=== PATIENT | male | born 1985 | race Caucasian/White ===

== ENCOUNTER → 2016-11-22 | Outpatient (CLI) | payer MEDICAID, OTHER | LOC: M LAB 14:27 | PROVIDERS: ATTEND Hospitalist | DX: Z11.3 Encounter for screening for infections with a predominantly sexual mode of transmission (principal); Z11.4 Encounter for screening for human immunodeficiency virus [HIV] ==

== ENCOUNTER 2016-12-13 12:11 | Emergency (ER) | payer MEDICAID, OTHER ==
[~2016-12-13] VITALS: Ht 177.8 cm; Wt 84.5 kg
[2016-12-13] MEDS ORDERED: BUPR150T3 (12:26)
[2016-12-13] MEDS ORDERED: OMEP40CA2 (12:26)
[2016-12-13] MEDS ORDERED: SERT-138 (12:26)
[2016-12-13 13:48] VITALS: BP 135/88
--- NOTE | 2016-12-13 14:09 | REP ---
RIGHT FOOT, FIVE VIEWS: There is no evidence of an acute fracture, dislocation or intrinsic bone disease. IMPRESSION: No fracture or dislocation. Signed by Alonzo Blank MD 12/13/2016 04:44 P
== END 2016-12-13 13:59 | disposition home or self-care (01) ==
LOC: M ED 12:11
DX: S93.601A Unspecified sprain of right foot, initial encounter (principal); X50.9XXA Other and unspecified overexertion or strenuous movements or postures, initial encounter; Y92.410 Unspecified street and highway as the place of occurrence of the external cause; Y93.89 Activity, other specified; Y99.8 Other external cause status; F41.9 Anxiety disorder, unspecified; F32.9 Major depressive disorder, single episode, unspecified; Z79.899 Other long term (current) drug therapy

== ENCOUNTER 2017-07-23 00:11 | Emergency (ER) | payer OTHER ==
[2017-07-23 02:25] LABS: APPEARANCE, URINE CLEAR (CLEAR); BACTERIA, URINE AUTO NEGATIVE (NEGATIVE); BILIRUBIN, URINE AUTO NEGATIVE (NEGATIVE); BLOOD, URINE BLOOD NEGATIVE (NEGATIVE); COLOR, URINE YELLOW (YELLOW); GLUCOSE, URINE (UA) AUTO NEGATIVE (NEGATIVE); KETONE, URINE AUTO NEGATIVE (NEGATIVE); LEUKOCYTE ESTERASE, URINE AUTO NEGATIVE (NEGATIVE); NITRITE, URINE AUTO NEGATIVE (NEGATIVE); PROTEIN, URINE AUTO NEGATIVE (NEGATIVE); RBC, URINE AUTO 0 /HPF (0-3); SPECIFIC GRAVITY URINE AUTO 1.003 (1.002-1.035); SQUAMOUS EPITHELIAL CELL UR AU 0 /HPF (0-6); UROBILINOGEN, URINE AUTO 0.2 mg/dL (0.0-2.0); WBC, URINE AUTO 0 /HPF (0-3)
[2017-07-23 03:53] LABS: CHLAMYDIA DNA AMPLIFICATION NEGATIVE (NEGATIVE); GC DNA AMPLIFICATION NEGATIVE (NEGATIVE)
== END 2017-07-23 04:21 | disposition home or self-care (01) ==
LOC: M ED 00:11
DX: N34.2 Other urethritis (principal); F41.9 Anxiety disorder, unspecified; Z79.899 Other long term (current) drug therapy; F17.210 Nicotine dependence, cigarettes, uncomplicated
CPT/HCPCS: 81001

== ENCOUNTER → 2017-07-28 | Outpatient (REF) | payer OTHER ==
[2017-07-28 14:18] LABS: APPEARANCE, URINE CLEAR (CLEAR); BACTERIA, URINE AUTO NEGATIVE (NEGATIVE); BILIRUBIN, URINE AUTO NEGATIVE (NEGATIVE); BLOOD, URINE BLOOD NEGATIVE (NEGATIVE); COLOR, URINE YELLOW (YELLOW); GLUCOSE, URINE (UA) AUTO NEGATIVE (NEGATIVE); KETONE, URINE AUTO NEGATIVE (NEGATIVE); LEUKOCYTE ESTERASE, URINE AUTO NEGATIVE (NEGATIVE); MUCUS, URINE SMALL (NEGATIVE); NITRITE, URINE AUTO NEGATIVE (NEGATIVE); PROTEIN, URINE AUTO NEGATIVE (NEGATIVE); RBC, URINE AUTO 2 /HPF (0-3); SPECIFIC GRAVITY URINE AUTO 1.013 (1.002-1.035); SQUAMOUS EPITHELIAL CELL UR AU 1 /HPF (0-6); UROBILINOGEN, URINE AUTO 0.2 mg/dL (0.0-2.0); WBC, URINE AUTO 4 /HPF (0-3)
== END ==
LOC: M SMT 13:26
DX: N48.89 Other specified disorders of penis (principal)
CPT/HCPCS: 81001

== ENCOUNTER → 2017-09-08 | Outpatient (REF) | payer OTHER ==
[2017-09-08 16:42] LABS: THYROID STIMULATING HORMONE 0.943 uIU/ML (0.358-3.740)
== END ==
LOC: M SFHCPLAZ 14:27
DX: F41.8 Other specified anxiety disorders (principal)

== ENCOUNTER 2018-02-15 12:10 | Inpatient (IN) | payer OTHER ==
[2018-02-15 12:58] LABS: HEMATOCRIT 46.7 % (42.0-52.0); HEMOGLOBIN 16.1 g/dl (13.5-17.5); MEAN CORPUSCULAR HEMOGLOBIN 32.1 pg (27.0-33.0); MEAN CORPUSCULAR HGB CONC 34.5 g/dl (32.0-36.5); PLATELET COUNT, AUTOMATED 322 10^3/uL (150-450); RED BLOOD COUNT 5.02 10^6/uL (4.30-6.10); RED CELL DISTRIBUTION WIDTH 12.6 % (11.5-14.5); WHITE BLOOD COUNT 11.8 10^3/uL (4.0-10.0)
[2018-02-15 13:34] LABS: ACETAMINOPHEN LEVEL < 2.0 UG/ML (10.0-30.0); ALBUMIN 4.3 GM/DL (3.2-5.2); ALKALINE PHOSPHATASE 64 U/L (45-117); ALT/SGPT 39 U/L (12-78); AST/SGOT 20 U/L (7-37); BILIRUBIN,DIRECT 0.3 MG/DL (0.0-0.2); BILIRUBIN,TOTAL 1.3 MG/DL (0.2-1.0); ETHYL ALCOHOL (ETHANOL) 0.003 % (0.000-0.010); SALICYLATE LEVEL < 1.7 MG/DL (5.0-30.0); THYROID STIMULATING HORMONE 0.867 uIU/ML (0.358-3.740); TOTAL PROTEIN 7.6 GM/DL (6.4-8.2)
[2018-02-15 14:15] LABS: ANION GAP 14 MEQ/L (8-16); BLOOD UREA NITROGEN 13 MG/DL (7-18); CALCIUM LEVEL 9.6 MG/DL (8.5-10.1); CARBON DIOXIDE LEVEL 21 MEQ/L (21-32); CHLORIDE LEVEL 107 MEQ/L (98-107); GLOMERULAR FILTRATION RATE > 60.0 (>60); GLUCOSE, FASTING 102 MG/DL (70-100); POTASSIUM SERUM 4.4 MEQ/L (3.5-5.1); SODIUM LEVEL 142 MEQ/L (136-145)
[2018-02-15 15:26] LABS: AMPHETAMINES LEVEL URINE NEGATIVE (NEGATIVE); BARBITURATES URINE NEGATIVE (NEGATIVE); BENZODIAZEPINES URINE NEGATIVE (NEGATIVE); CANNABINOIDS URINE POSITIVE (NEGATIVE); COCAINE METABOLITE URINE NEGATIVE (NEGATIVE); METHADONE URINE NEGATIVE (NEGATIVE); OPIATES URINE NEGATIVE (NEGATIVE); PHENCYCLIDINE URINE NEGATIVE (NEGATIVE)
[2018-02-15] MEDS ORDERED: MOM 30ML SUSPENSION UDC PO (17:45)
[2018-02-15] MEDS ORDERED: MAALOX 30 ML SUSP *UDC PO (17:45)
[2018-02-15] MEDS ORDERED: OLANZapine ORAL DISINTEGRATING TAB 5MG PO (17:45)
[2018-02-15] MEDS ORDERED: traZODone 50 MG TAB PO (17:45)
[2018-02-15] MEDS ORDERED: LORazepam 1 MG TAB PO (17:45)
[2018-02-15] MEDS: NICOTINE POLACRILEX 2 MG GUM PO (18:15)
[2018-02-15] MEDS ORDERED: NICOTINE POLACRILEX 2 MG GUM PO (22:15)
[2018-02-16] MEDS: FLUoxetine 20 MG CAP PO (09:51)
[2018-02-16] MEDS: INFLUENZA QUADRIVALENT PF VACCINE 0.5ML SYRINGE (90686) IM (09:52)
[2018-02-16] MEDS: NICOTINE 21MG/24HR 1 EA TRANSDERMAL TD (16:09)
[2018-02-17 07:05] LABS: HEMATOCRIT 46.5 % (42.0-52.0); HEMOGLOBIN 15.4 g/dl (13.5-17.5); MEAN CORPUSCULAR HEMOGLOBIN 31.6 pg (27.0-33.0); MEAN CORPUSCULAR HGB CONC 33.1 g/dl (32.0-36.5); MEAN CORPUSCULAR VOLUME 95.3 fl (80.0-96.0); PLATELET COUNT, AUTOMATED 308 10^3/uL (150-450); RED BLOOD COUNT 4.88 10^6/uL (4.30-6.10); RED CELL DISTRIBUTION WIDTH 12.4 % (11.5-14.5); WHITE BLOOD COUNT 8.6 10^3/uL (4.0-10.0)
[2018-02-17] MEDS: buPROPion **XL** TABLET 150MG (WELLBUTRIN XL) PO (08:53)
[2018-02-17] MEDS: FLUoxetine 20 MG CAP PO (08:53)
[2018-02-17] MEDS: NICOTINE 21MG/24HR 1 EA TRANSDERMAL TD (08:54)
[2018-02-17] MEDS: IBUPROFEN 600 MG TAB PO (08:57)
[2018-02-18] MEDS: OMEPRAZOLE 20 MG CAP PO (09:02)
[2018-02-18] MEDS: FLUoxetine 20 MG CAP PO (09:02)
[2018-02-18] MEDS: buPROPion **XL** TABLET 150MG (WELLBUTRIN XL) PO (09:03)
[2018-02-18] MEDS: NICOTINE 21MG/24HR 1 EA TRANSDERMAL TD (09:04)
[2018-02-18] MEDS: ACETAMINOPHEN TAB 650MG DOSE (2X325MG) PO (09:07)
[2018-02-18] MEDS ORDERED: hydrOXYzine 25 MG TAB PO (09:15)
[2018-02-19] MEDS: NICOTINE 21MG/24HR 1 EA TRANSDERMAL TD (09:24)
[2018-02-19] MEDS: OMEPRAZOLE 20 MG CAP PO (09:24)
[2018-02-19] MEDS: buPROPion **XL** TABLET 150MG (WELLBUTRIN XL) PO (09:24)
[2018-02-19] MEDS: FLUoxetine 20 MG CAP PO (09:24)
[2018-02-20] MEDS: FLUoxetine 20 MG CAP PO (08:05)
[2018-02-20] MEDS: OMEPRAZOLE 20 MG CAP PO (08:05)
[2018-02-20] MEDS: buPROPion **XL** TABLET 150MG (WELLBUTRIN XL) PO (08:05)
[2018-02-20] MEDS: NICOTINE 21MG/24HR 1 EA TRANSDERMAL TD (08:06)
[2018-02-21] MEDS: buPROPion **XL** TABLET 150MG (WELLBUTRIN XL) PO (08:10)
[2018-02-21] MEDS: FLUoxetine 20 MG CAP PO (08:10)
[2018-02-21] MEDS: NICOTINE 21MG/24HR 1 EA TRANSDERMAL TD (08:10)
[2018-02-21] MEDS: OMEPRAZOLE 20 MG CAP PO (08:10)
== END 2018-02-21 11:55 | disposition home or self-care (01) | DRG 751 ==
LOC: M PSY 02-17 06:59 → M ED 12:10 → M ED INP 17:43 → M PSY 20:45
DX: F33.2 Major depressive disorder, recurrent severe without psychotic features (principal); F43.10 Post-traumatic stress disorder, unspecified; F41.1 Generalized anxiety disorder; Z81.8 Family history of other mental and behavioral disorders; Z79.899 Other long term (current) drug therapy

== ENCOUNTER 2018-03-16 21:46 | Emergency (ER) | payer OTHER ==
[2018-03-16 22:00] LABS: HEMATOCRIT 50.3 % (42.0-52.0); HEMOGLOBIN 17.1 g/dl (13.5-17.5); MEAN CORPUSCULAR HEMOGLOBIN 31.8 pg (27.0-33.0); MEAN CORPUSCULAR VOLUME 93.5 fl (80.0-96.0); PLATELET COUNT, AUTOMATED 321 10^3/uL (150-450); RED BLOOD COUNT 5.38 10^6/uL (4.30-6.10); RED CELL DISTRIBUTION WIDTH 12.3 % (11.5-14.5); WHITE BLOOD COUNT 7.2 10^3/uL (4.0-10.0)
[2018-03-16] MEDS: chlorproMAZINE 25 MG TAB (Q0161) PO (22:00)
[2018-03-16 22:26] LABS: ACETAMINOPHEN LEVEL < 2.0 UG/ML (10.0-30.0); ALBUMIN 4.3 GM/DL (3.2-5.2); ALBUMIN/GLOBULIN RATIO 1.16 (1.00-1.93); ALKALINE PHOSPHATASE 86 U/L (45-117); ALT/SGPT 43 U/L (12-78); ANION GAP 8 MEQ/L (8-16); AST/SGOT 34 U/L (7-37); BILIRUBIN,DIRECT 0.2 MG/DL (0.0-0.2); BILIRUBIN,TOTAL 0.7 MG/DL (0.2-1.0); BLOOD UREA NITROGEN 10 MG/DL (7-18); CALCIUM LEVEL 8.6 MG/DL (8.5-10.1); CARBON DIOXIDE LEVEL 28 MEQ/L (21-32); CHLORIDE LEVEL 107 MEQ/L (98-107); CREATININE FOR GFR 0.89 MG/DL (0.70-1.30); ETHYL ALCOHOL (ETHANOL) 0.145 % (0.000-0.010); GLOMERULAR FILTRATION RATE > 60.0 (>60); GLUCOSE, FASTING 84 MG/DL (70-100); POTASSIUM SERUM 4.2 MEQ/L (3.5-5.1); SALICYLATE LEVEL 2.1 MG/DL (5.0-30.0); SODIUM LEVEL 143 MEQ/L (136-145)
[2018-03-16 22:31] LABS: AMPHETAMINES LEVEL URINE NEGATIVE (NEGATIVE); BARBITURATES URINE NEGATIVE (NEGATIVE); BENZODIAZEPINES URINE NEGATIVE (NEGATIVE); CANNABINOIDS URINE POSITIVE (NEGATIVE); COCAINE METABOLITE URINE NEGATIVE (NEGATIVE); METHADONE URINE NEGATIVE (NEGATIVE); OPIATES URINE NEGATIVE (NEGATIVE); PHENCYCLIDINE URINE NEGATIVE (NEGATIVE)
== END 2018-03-17 05:02 | disposition home or self-care (01) ==
LOC: M ED 03-17 05:02
DX: R45.850 Homicidal ideations (principal); Z72.811 Adult antisocial behavior; F10.929 Alcohol use, unspecified with intoxication, unspecified; F12.10 Cannabis abuse, uncomplicated; Z79.899 Other long term (current) drug therapy
CPT/HCPCS: Q0161

== ENCOUNTER 2018-03-21 19:01 | Inpatient (IN) | payer OTHER ==
[2018-03-21 19:47] LABS: HEMATOCRIT 42.5 % (42.0-52.0); HEMOGLOBIN 14.9 g/dl (13.5-17.5); MEAN CORPUSCULAR HEMOGLOBIN 31.8 pg (27.0-33.0); MEAN CORPUSCULAR HGB CONC 35.1 g/dl (32.0-36.5); MEAN CORPUSCULAR VOLUME 90.8 fl (80.0-96.0); PLATELET COUNT, AUTOMATED 324 10^3/uL (150-450); RED BLOOD COUNT 4.68 10^6/uL (4.30-6.10); RED CELL DISTRIBUTION WIDTH 11.9 % (11.5-14.5); WHITE BLOOD COUNT 8.9 10^3/uL (4.0-10.0)
[2018-03-21 20:26] LABS: AMPHETAMINES LEVEL URINE NEGATIVE (NEGATIVE); BARBITURATES URINE NEGATIVE (NEGATIVE); BENZODIAZEPINES URINE NEGATIVE (NEGATIVE); CANNABINOIDS URINE POSITIVE (NEGATIVE)
[2018-03-21 20:27] LABS: COCAINE METABOLITE URINE NEGATIVE (NEGATIVE); METHADONE URINE NEGATIVE (NEGATIVE); OPIATES URINE NEGATIVE (NEGATIVE); PHENCYCLIDINE URINE NEGATIVE (NEGATIVE)
[2018-03-21 20:42] LABS: ALBUMIN/GLOBULIN RATIO 1.48 (1.00-1.93); ALKALINE PHOSPHATASE 69 U/L (45-117); ALT/SGPT 37 U/L (12-78); AST/SGOT 17 U/L (7-37); BLOOD UREA NITROGEN 11 MG/DL (7-18); CALCIUM LEVEL 9.1 MG/DL (8.5-10.1); CARBON DIOXIDE LEVEL 27 MEQ/L (21-32); CREATININE FOR GFR 0.82 MG/DL (0.70-1.30); GLOMERULAR FILTRATION RATE > 60.0 (>60); SODIUM LEVEL 141 MEQ/L (136-145); TOTAL PROTEIN 6.7 GM/DL (6.4-8.2)
[2018-03-21 21:00] LABS: ANION GAP 6 MEQ/L (8-16); BILIRUBIN,DIRECT 0.3 MG/DL (0.0-0.2); BILIRUBIN,TOTAL 1.3 MG/DL (0.2-1.0); CHLORIDE LEVEL 108 MEQ/L (98-107); ETHYL ALCOHOL (ETHANOL) < 0.003 % (0.000-0.010); GLUCOSE, FASTING 129 MG/DL (70-100); SALICYLATE LEVEL < 1.7 MG/DL (5.0-30.0)
[2018-03-21] MEDS: THIAMINE 100 MG TAB PO (21:00)
[2018-03-21 21:01] LABS: ACETAMINOPHEN LEVEL < 2.0 UG/ML (10.0-30.0)
[2018-03-21] MEDS ORDERED: MOM 30ML SUSPENSION UDC PO (23:00)
[2018-03-21] MEDS ORDERED: LORazepam 2 MG TAB PO (23:00)
[2018-03-21] MEDS ORDERED: ACETAMINOPHEN TAB 650MG DOSE (2X325MG) PO (23:00)
[2018-03-21] MEDS ORDERED: MAALOX 30 ML SUSP *UDC PO (23:00)
[2018-03-21 23:07] LABS: GOLD SPEC TUBE RECIEVED
[2018-03-22] MEDS: MULTIVITAMINS/MINERALS THERAP 1 TAB PO (08:16)
[2018-03-22] MEDS: THIAMINE 100 MG TAB PO ×2 (08:16→21:27)
[2018-03-22] MEDS: FOLIC ACID 1 MG TAB PO (08:16)
[2018-03-22] MEDS ORDERED: PANTOPRAZOLE 40MG TAB (PROTONIX) PO (11:00)
[2018-03-22] MEDS ORDERED: hydrOXYzine 50 MG TAB PO (13:45)
[2018-03-22] MEDS: FLUoxetine 20 MG CAP PO (14:13)
[2018-03-22] MEDS: buPROPion **XL** TABLET 150MG (WELLBUTRIN XL) PO (14:13)
[2018-03-22] MEDS: GABAPENTIN 100 MG CAP PO ×2 (15:03→21:27)
[2018-03-22] MEDS: traZODone 50 MG TAB PO (21:27)
[2018-03-23] MEDS: MULTIVITAMINS/MINERALS THERAP 1 TAB PO (08:51)
[2018-03-23] MEDS: GABAPENTIN 100 MG CAP PO ×3 (08:51→21:03)
[2018-03-23] MEDS: FOLIC ACID 1 MG TAB PO (08:51)
[2018-03-23] MEDS: buPROPion **XL** TABLET 150MG (WELLBUTRIN XL) PO (08:51)
[2018-03-23] MEDS: FLUoxetine 20 MG CAP PO (08:51)
[2018-03-23] MEDS: THIAMINE 100 MG TAB PO ×2 (08:51→21:03)
[2018-03-23] MEDS: traZODone 50 MG TAB PO (21:03)
[2018-03-24] MEDS: buPROPion **XL** TABLET 150MG (WELLBUTRIN XL) PO (08:29)
[2018-03-24] MEDS: FLUoxetine 20 MG CAP PO (08:30)
[2018-03-24] MEDS: MULTIVITAMINS/MINERALS THERAP 1 TAB PO (08:30)
[2018-03-24] MEDS: GABAPENTIN 100 MG CAP PO ×3 (08:30→23:34)
[2018-03-24] MEDS: FOLIC ACID 1 MG TAB PO (08:30)
[2018-03-24] MEDS: THIAMINE 100 MG TAB PO (08:30)
[2018-03-24] MEDS: traZODone 50 MG TAB PO (23:34)
[2018-03-25] MEDS: MULTIVITAMINS/MINERALS THERAP 1 TAB PO (08:06)
[2018-03-25] MEDS: FOLIC ACID 1 MG TAB PO (08:06)
[2018-03-25] MEDS: FLUoxetine 20 MG CAP PO (08:07)
[2018-03-25] MEDS: buPROPion **XL** TABLET 150MG (WELLBUTRIN XL) PO (08:07)
[2018-03-25] MEDS: GABAPENTIN 100 MG CAP PO ×3 (08:07→21:17)
[2018-03-25] MEDS: traZODone 50 MG TAB PO (21:17)
[2018-03-26] MEDS: FLUoxetine 20 MG CAP PO (08:37)
[2018-03-26] MEDS: buPROPion **XL** TABLET 150MG (WELLBUTRIN XL) PO (08:37)
[2018-03-26] MEDS: FOLIC ACID 1 MG TAB PO (08:37)
[2018-03-26] MEDS: MULTIVITAMINS/MINERALS THERAP 1 TAB PO (08:37)
[2018-03-26] MEDS: GABAPENTIN 100 MG CAP PO ×3 (08:37→22:20)
[2018-03-26] MEDS: traZODone 50 MG TAB PO (22:20)
[2018-03-27] MEDS: MULTIVITAMINS/MINERALS THERAP 1 TAB PO (08:16)
[2018-03-27] MEDS: FOLIC ACID 1 MG TAB PO (08:16)
[2018-03-27] MEDS: GABAPENTIN 100 MG CAP PO ×3 (08:16→21:17)
[2018-03-27] MEDS: buPROPion **XL** TABLET 150MG (WELLBUTRIN XL) PO (08:16)
[2018-03-27] MEDS: FLUoxetine 20 MG CAP PO (08:16)
[2018-03-27] MEDS: traZODone 50 MG TAB PO (21:17)
[2018-03-28] MEDS: FLUoxetine 20 MG CAP PO (08:35)
[2018-03-28] MEDS: buPROPion **XL** TABLET 150MG (WELLBUTRIN XL) PO (08:35)
[2018-03-28] MEDS: GABAPENTIN 100 MG CAP PO (08:35)
[2018-03-28] MEDS: MULTIVITAMINS/MINERALS THERAP 1 TAB PO (08:35)
[2018-03-28] MEDS: FOLIC ACID 1 MG TAB PO (08:35)
== END 2018-03-28 12:06 | disposition home or self-care (01) | DRG 755 ==
LOC: M PSY 03-22 01:42 → M ED 19:01 → M ED INP 22:51
PROVIDERS: Psychiatry & Neurology Psychiatry
DX: F43.10 Post-traumatic stress disorder, unspecified (principal); F33.2 Major depressive disorder, recurrent severe without psychotic features; F41.1 Generalized anxiety disorder; F10.10 Alcohol abuse, uncomplicated; F12.10 Cannabis abuse, uncomplicated; K21.9 Gastro-esophageal reflux disease without esophagitis; M54.9 Dorsalgia, unspecified; J30.2 Other seasonal allergic rhinitis; L65.9 Nonscarring hair loss, unspecified; Z79.899 Other long term (current) drug therapy; Z87.891 Personal history of nicotine dependence

== ENCOUNTER → 2018-05-01 | Outpatient (CLI) | payer OTHER | LOC: M OUTALCOH 08:04 | DX: F10.20 Alcohol dependence, uncomplicated (principal) ==

== ENCOUNTER → 2018-05-29 | Outpatient (RCR) | payer OTHER ==
[~2018-05-29] MED LIST: BUPR150T3; BUPR300T34 PO; FLUO20CA19 PO; FLUO20CA8 PO; FLUO40CA PO; FOLI1TAB11 PO; GABA-1171 PO; HYDR-3363 PO; HYDRO50TAB PO; NEXI1CAP4 PO; NEXI40CA PO; NICO21DI31 TD; NICO4GUM8 PO; OMEP40CA2; SERT-138; TRAZ-160 PO; TRAZO50TA PO; VITMTA PO
== END ==
LOC: M OUTALCOH 05-09 15:40
PROVIDERS: ATTEND Psychiatry & Neurology Psychiatry
DX: F10.20 Alcohol dependence, uncomplicated (principal); F12.20 Cannabis dependence, uncomplicated; F17.200 Nicotine dependence, unspecified, uncomplicated

== ENCOUNTER → 2018-06-29 | Outpatient (RCR) | payer OTHER | LOC: M OUTALCOH 05-31 15:34 | PROVIDERS: ATTEND Psychiatry & Neurology Psychiatry | DX: F10.20 Alcohol dependence, uncomplicated (principal); F12.20 Cannabis dependence, uncomplicated; F17.200 Nicotine dependence, unspecified, uncomplicated ==

== ENCOUNTER 2018-07-26 08:45 | Outpatient (RCR) | payer OTHER | END 2018-07-27 | LOC: M OUTALCOH 08:45 | PROVIDERS: ATTEND Psychiatry & Neurology Psychiatry | DX: F10.20 Alcohol dependence, uncomplicated (principal); F12.20 Cannabis dependence, uncomplicated; F17.200 Nicotine dependence, unspecified, uncomplicated ==

== ENCOUNTER 2018-08-25 14:00 | Outpatient (RCR) | payer OTHER | END 2018-08-27 | LOC: M OUTALCOH 14:00 | PROVIDERS: ATTEND Psychiatry & Neurology Psychiatry | DX: F10.20 Alcohol dependence, uncomplicated (principal); F17.200 Nicotine dependence, unspecified, uncomplicated ==

== ENCOUNTER 2018-09-25 14:00 | Outpatient (RCR) | payer OTHER | END 2018-09-26 | LOC: M OUTALCOH 14:00 | PROVIDERS: ATTEND Psychiatry & Neurology Psychiatry | DX: F10.20 Alcohol dependence, uncomplicated (principal); F12.20 Cannabis dependence, uncomplicated; F17.200 Nicotine dependence, unspecified, uncomplicated ==

== ENCOUNTER 2018-10-24 15:32 | Emergency (ER) | payer OTHER ==
[~2018-10-24] VITALS: Ht 180.3 cm; Wt 77.3 kg
[2018-10-24] MEDS ORDERED: VIVI380I IM (19:04)
[2018-10-24] MEDS ORDERED: BUSP30TA PO (19:04)
[2018-10-24 19:07] LABS: BASO # 0.1 10^3/uL (0.0-0.2); BASO % 0.6 % (0.0-1.0); EOS # 0.2 10^3/uL (0.0-0.50); EOS % 1.7 % (0.0-3.0); HEMATOCRIT 45.9 % (42.0-52.0); HEMOGLOBIN 15.6 g/dl (13.5-17.5); LYMPH # 2.1 10^3/uL (1.5-4.5); LYMPH % 23.8 % (24.0-44.0); MEAN CORPUSCULAR HEMOGLOBIN 31.6 pg (27.0-33.0); MEAN CORPUSCULAR VOLUME 93.1 fl (80.0-96.0); MONO # 0.6 10^3/uL (0.0-0.8); MONO % 6.5 % (0.0-5.0); NEUTROPHILS % 67.1 % (36.0-66.0); PLATELET COUNT, AUTOMATED 314 10^3/uL (150-450); RED BLOOD COUNT 4.93 10^6/uL (4.30-6.10); WHITE BLOOD COUNT 8.9 10^3/uL (4.0-10.0)
--- NOTE | 2018-10-24 19:14 | REP ---
Clinical: Acute chest pain . Comparison: None . Technique: PA and lateral. Findings: The mediastinum and cardiac silhouette are normal. The lung dacosta are clear and without acute consolidation, effusion, or pneumothorax. The skeletal structures are intact and normal. Impression: 1. No acute cardiopulmonary process. Electronically Signed by Turner Chacon MD 10/24/2018 07:06 P
[2018-10-24 19:55] LABS: ALT/SGPT 33 U/L (12-78); BILIRUBIN,DIRECT 0.2 MG/DL (0.0-0.2); BILIRUBIN,TOTAL 0.9 MG/DL (0.2-1.0); BLOOD UREA NITROGEN 8 MG/DL (7-18); CALCIUM LEVEL 8.9 MG/DL (8.5-10.1); CARBON DIOXIDE LEVEL 26 MEQ/L (21-32); CHLORIDE LEVEL 106 MEQ/L (98-107); CK-MB VALUE MASS < 1.0 NG/ML (<3.6); CPK CREATINE PHOSPHOKINASE 52 U/L (39-308); CREATININE FOR GFR 0.74 MG/DL (0.70-1.30); GLOMERULAR FILTRATION RATE > 60.0 (>60); GLUCOSE, FASTING 85 MG/DL (70-100); LIPASE 104 U/L (73-393); MB/CK RELATIVE INDEX 1.92 (< OR =4); NT-PRO BNP 76 PG/ML (<125); SODIUM LEVEL 142 MEQ/L (136-145); TOTAL PROTEIN 7.5 GM/DL (6.4-8.2); TROPONIN I < 0.02 NG/ML (< 0.10)
[2018-10-24 20:47] VITALS: BP 172/92
--- NOTE | 2018-10-25 19:27 | ECGEPIP ---
[facility] - ED Test Date: 2018-10-24 Pat Name: HAYDEE GALLEGOS Department: Room: - Gender: Male Bluing [employer]: [facility] : 1985 Requested By: Charlotte Ramos Order Number: [id number] Reading MD: Josh Cadet Measurements Intervals [place] Rate: 64 P: 50 NM: 144 QRS: 81 QRSD: 109 T: 49 QT: 398 QTc: 412 Interpretive Statements SINUS RHYTHM WITH SINUS ARRHYTHMIA Electronically Signed on 10-25-2018 19:27:35 EDT by Josh Cadet
== END 2018-10-24 20:47 | disposition home or self-care (01) ==
LOC: M ED 15:32
DX: I10 Essential (primary) hypertension (principal); K21.9 Gastro-esophageal reflux disease without esophagitis; F33.9 Major depressive disorder, recurrent, unspecified; F41.9 Anxiety disorder, unspecified; F17.210 Nicotine dependence, cigarettes, uncomplicated

== ENCOUNTER → 2018-10-27 | Outpatient (RCR) | payer OTHER ==
[~2018-10-27] MED LIST changes: +BUSP30TA PO; +VIVI380I IM
== END ==
LOC: M OUTALCOH 09-29 14:43
PROVIDERS: ATTEND Psychiatry & Neurology Psychiatry
DX: F10.20 Alcohol dependence, uncomplicated (principal); F12.20 Cannabis dependence, uncomplicated; F17.200 Nicotine dependence, unspecified, uncomplicated

== ENCOUNTER 2018-11-24 08:30 | Outpatient (RCR) | payer OTHER ==
[~2018-11-24 08:30] MED LIST changes: -TRAZ-160 PO; +TRAZ-252 PO; +TRAZ1TAB10 PO; -TRAZO50TA PO
== END 2018-11-26 ==
LOC: M OUTALCOH 08:30
PROVIDERS: ATTEND Psychiatry & Neurology Psychiatry
DX: F10.20 Alcohol dependence, uncomplicated (principal); F12.20 Cannabis dependence, uncomplicated; F17.200 Nicotine dependence, unspecified, uncomplicated

== ENCOUNTER 2019-04-20 11:58 | Emergency (ER) | payer OTHER ==
[~2019-04-20] VITALS: Ht 180.3 cm; Wt 82.8 kg
[~2019-04-20 11:58] MED LIST changes: +HYDR1TAB33 PO; -HYDRO50TAB PO; -OMEP40CA2; +OMEP40CA97
[2019-04-20 11:59] VITALS: BP 148/66
== END 2019-04-20 14:03 | disposition left against medical advice (07) ==
LOC: M ED 11:58
DX: Z53.21 Procedure and treatment not carried out due to patient leaving prior to being seen by health care provider (principal)

== ENCOUNTER → 2020-02-14 | Outpatient (CLI) | payer OTHER ==
[~2020-02-14] MED LIST changes: -BUPR300T34 PO; +BUPR300T92 PO; -FLUO20CA19 PO; +FLUO20CA20 PO; +FLUO20CA22 PO; -FLUO20CA8 PO; +MARIJUANA MEDICAL INH; +OMEP-218 PO
== END ==
LOC: M LABSMTC 10:57
PROVIDERS: ATTEND Anesthesiology
DX: Z01.812 Encounter for preprocedural laboratory examination (principal); Z20.828 Contact with and (suspected) exposure to other viral communicable diseases
CPT/HCPCS: C9803; U0003

== ENCOUNTER 2020-02-19 13:10 | Day surgery (SDC) | payer OTHER ==
[~2020-02-19] VITALS: Ht 182.9 cm; Wt 73.9 kg
[~2020-02-19 13:10] MED LIST changes: +NS 1,000 ML IV ONE
[2020-02-19] MEDS ORDERED: propofoL 200 MG/20 ML VIAL As Ordered ONE ×3 (14:28→14:59)
[2020-02-19] MEDS ORDERED: LIDOCAINE 2% 100MG/5ML SDV (FOR ANES.) As Ordered ONE (14:28)
--- NOTE | 2020-02-19 15:18 | ROOR ---
Patient Name: Wyatt Burciaga Procedure Date: 02/19/2020 2:41 PM Date of : 1985 Age: 34 Room: [facility] Gender: Male Note Status: Finalized Procedure: Upper GI endoscopy Indications: Suspected gastro-esophageal reflux disease, Hematemesis Providers: Haroon Damon MD Referring MD: SENTHIL MACIEL Eva CTR SENTHIL Zepeda Requesting Provider: Medicines: Monitored Anesthesia Care Complications: No immediate complications. Procedure: Pre-Anesthesia Assessment: - Prior to the procedure, a History and Physical was performed, and patient medications and allergies were reviewed. The patient is competent. The risks and benefits of the procedure and the sedation options and risks were discussed with the patient. All questions were answered and informed consent was obtained. Patient identification and proposed procedure were verified by the physician, the nurse and the anesthesiologist in the procedure room. Mental Status Examination: alert and oriented. Airway Examination: normal oropharyngeal airway and neck mobility. Respiratory Examination: clear to auscultation. CV Examination: normal. Prophylactic Antibiotics: The patient does not require prophylactic antibiotics. Prior Anticoagulants: The patient has taken no previous anticoagulant or antiplatelet agents. ASA Grade Assessment: II - A patient with mild systemic disease. After reviewing the risks and benefits, the patient was deemed in satisfactory condition to undergo the procedure. The anesthesia plan was to use monitored anesthesia care (MAC). Immediately prior to administration of medications, the patient was re-assessed for adequacy to receive sedatives. The heart rate, respiratory rate, oxygen saturations, blood pressure, adequacy of pulmonary ventilation, and response to care were monitored throughout the procedure. The physical status of the patient was re-assessed after the procedure. The Endoscope was introduced through the mouth, and advanced to the second part of duodenum. The upper GI endoscopy was accomplished without difficulty. The patient tolerated the procedure well. Findings: LA Grade A (one or more mucosal breaks less than 5 mm, not extending between tops of 2 mucosal folds) esophagitis with no bleeding was found in the distal esophagus. Biopsies were taken with a cold forceps for histology. Verification of patient identification for the specimen was done by the physician and nurse using the patient's name, date and medical record number. Estimated blood loss was minimal. Scattered mild inflammation characterized by erythema, friability and granularity was found in the gastric antrum. Biopsies were taken with a cold forceps for Helicobacter pylori testing. The duodenal bulb, second portion of the duodenum and area of the papilla were normal. Impression: - LA Grade A reflux esophagitis. Rule out Johnson's esophagus. Biopsied. - Gastritis. Biopsied. - Normal duodenal bulb, second portion of the duodenum and area of the papilla. Recommendation: - Patient has a contact number available for emergencies. The signs and symptoms of potential delayed complications were discussed with the patient. Return to normal activities tomorrow. Written discharge instructions were provided to the patient. - High fiber diet. - Continue present medications. - Follow an antireflux regimen. - Await pathology results. - Telephone GI clinic for pathology results in 2 weeks. - Return to GI clinic if persistent symptoms or new symptoms. - Return to primary care physician. Haroon Damon MD Haroon Damon MD 02/19/2020 3:18:20 PM Electronically signed by Haroon Damon MD Number of Addenda: 0 Note Initiated On: 02/19/2020 2:41 PM Estimated Blood Loss: Estimated blood loss was minimal.
[2020-02-19 15:35] VITALS: BP 132/81
== END 2020-02-19 15:44 | disposition home or self-care (01) ==
LOC: M OPP 13:10
PROVIDERS: ATTEND Internal Medicine Gastroenterology
DX: K21.0 Gastro-esophageal reflux disease with esophagitis (principal); K29.70 Gastritis, unspecified, without bleeding; K92.0 Hematemesis; I10 Essential (primary) hypertension; F17.210 Nicotine dependence, cigarettes, uncomplicated

== ENCOUNTER → 2020-03-31 | Outpatient (CLI) | payer OTHER ==
[~2020-03-31] MED LIST changes: -NS 1,000 ML IV ONE
[2020-03-31 13:52] LABS: BASO # 0.1 10^3/uL (0.0-0.2); BASO % 0.5 % (0.0-1.0); EOS # 0.2 10^3/uL (0.0-0.5); HEMATOCRIT 46.9 % (42.0-52.0); HEMOGLOBIN 15.8 g/dl (13.5-17.5); LYMPH # 2.4 10^3/uL (1.5-5.0); LYMPH % 20.8 % (24.0-44.0); MEAN CORPUSCULAR HGB CONC 33.7 g/dl (32.0-36.5); MEAN CORPUSCULAR VOLUME 94.9 fl (80.0-96.0); MONO # 0.6 10^3/uL (0.0-0.8); MONO % 5.4 % (0.0-5.0); NEUTROPHILS # 8.1 10^3/uL (1.5-8.5); PLATELET COUNT, AUTOMATED 325 10^3/uL (150-450); RED BLOOD COUNT 4.94 10^6/uL (4.30-6.10); WHITE BLOOD COUNT 11.5 10^3/uL (4.0-10.0)
[2020-03-31 18:42] LABS: ALBUMIN 4.1 GM/DL (3.2-5.2); BILIRUBIN,DIRECT 0.3 MG/DL (0.0-0.2); PERCENT SATURATION 27.3 % (19.7-50.0); TOTAL PROTEIN 7.1 GM/DL (6.4-8.2)
[2020-04-02 07:18] LABS: IGASUB2 100.7 mg/dL (73.2-301.2); IGASUB3 16.5 mg/dL (13.4-97.9); IgA SERUM (part of Subclasses) 129 mg/dL (90-386); TISSUE TRANSGLUTAMINASE IgA <2 U/mL (0-3)
== END ==
LOC: M LAB 12:29
PROVIDERS: ATTEND Internal Medicine Gastroenterology
DX: R11.2 Nausea with vomiting, unspecified (principal); R19.7 Diarrhea, unspecified

== ENCOUNTER → 2020-04-02 | Outpatient (REF) | payer OTHER | LOC: M LAB REF 17:19 | PROVIDERS: ATTEND Internal Medicine Gastroenterology | DX: R11.2 Nausea with vomiting, unspecified (principal); R19.7 Diarrhea, unspecified ==

== ENCOUNTER → 2021-01-13 | Outpatient (CLI) | payer OTHER ==
[~2021-01-13] MED LIST changes: +BUPR150T12; -BUPR150T3; +NICO1DIS12 TD; -NICO21DI31 TD; +OMEP40CA4; -OMEP40CA97
[2021-01-13 13:26] LABS: BASO # 0.1 10^3/uL (0.0-0.2); BASO % 0.4 % (0.0-1.0); EOS # 0.2 10^3/uL (0.0-0.5); EOS % 1.7 % (0.0-3.0); HEMATOCRIT 47.6 % (42.0-52.0); HEMOGLOBIN 15.8 g/dl (13.5-17.5); LYMPH # 2.2 10^3/uL (1.5-5.0); LYMPH % 17.3 % (24.0-44.0); MEAN CORPUSCULAR HEMOGLOBIN 31.6 pg (27.0-33.0); MEAN CORPUSCULAR HGB CONC 33.2 g/dl (32.0-36.5); MEAN CORPUSCULAR VOLUME 95.2 fl (80.0-96.0); MONO # 0.6 10^3/uL (0.0-0.8); MONO % 4.6 % (2.0-8.0); NEUTROPHILS # 9.8 10^3/uL (1.5-8.5); NEUTROPHILS % 75.5 % (36.0-66.0); PLATELET COUNT, AUTOMATED 334 10^3/uL (150-450)
[2021-01-13 13:36] LABS: INR 0.92; PROTHROMBIN TIME 12.7 SECONDS (12.7-14.5)
[2021-01-13 13:37] LABS: PARTIAL THROMBOPLASTIN TIME 30.5 SECONDS (25.9-37.0)
[2021-01-13 13:58] LABS: ALBUMIN 4.2 GM/DL (3.2-5.2); ALT/SGPT 28 U/L (12-78); BILIRUBIN,TOTAL 0.7 MG/DL (0.2-1.0); BLOOD UREA NITROGEN 14 MG/DL (7-18); CALCIUM LEVEL 9.7 MG/DL (8.5-10.1); CARBON DIOXIDE LEVEL 33 MEQ/L (21-32); CHLORIDE LEVEL 105 MEQ/L (98-107); CREATININE FOR GFR 0.67 MG/DL (0.70-1.30); GLOMERULAR FILTRATION RATE > 60.0 (>60); GLUCOSE, FASTING 85 MG/DL (70-100); POTASSIUM SERUM 4.4 MEQ/L (3.5-5.1); SODIUM LEVEL 140 MEQ/L (136-145); TOTAL PROTEIN 7.2 GM/DL (6.4-8.2)
[2021-01-13 13:59] LABS: VITAMIN B12 LEVEL 439 PG/ML (247-911)
[2021-01-13 14:00] LABS: FOLATE 8.8 NG/ML (>5.4)
== END ==
LOC: M PLALAB 11:24
PROVIDERS: ATTEND Student in an Organized Health Care Education/Training Program
DX: F32.2 Major depressive disorder, single episode, severe without psychotic features (principal); F10.20 Alcohol dependence, uncomplicated